=== PATIENT | female | born 1990 | race Caucasian/White ===

== ENCOUNTER 2021-07-13 20:58 | Emergency (ER) | payer OTHER ==
[~2021-07-13] VITALS: Ht 157.5 cm; Wt 69.4 kg
[2021-07-13] MEDS ORDERED: RESTASIS1 EACH OP (21:16)
[2021-07-13] MEDS ORDERED: FENOFIBRATE50 MG PO (21:16)
== END 2021-07-14 01:28 | disposition home or self-care (01) ==
LOC: ER 20:58
DX: M62.830 Muscle spasm of back (principal)